=== PATIENT | female | born 1970 | race Caucasian/White ===

== ENCOUNTER 2017-10-16 08:19 | Emergency (ER) | payer BC ==
--- NOTE | 2017-10-16 09:15 | RAD ---
CHEST PA AND LATERAL: HISTORY: A 47-year-old female with productive cough and pain on inspiration for several days. COMPARISON: 03/18/17. FINDINGS: Heart size is within normal limits. The lungs are clear. No pneumonia, edema, or pleural effusion. IMPRESSION: No acute intrathoracic disease. POS: [facility]
== END 2017-10-16 09:32 | disposition home or self-care (01) ==
LOC: SCSER 08:19
DX: J20.9 Acute bronchitis, unspecified (principal); B34.9 Viral infection, unspecified; J06.9 Acute upper respiratory infection, unspecified; E03.9 Hypothyroidism, unspecified; F41.9 Anxiety disorder, unspecified
CPT/HCPCS: 71020

== ENCOUNTER 2018-02-16 13:05 | Emergency (ER) | payer BC ==
[2018-02-16] MEDS ORDERED: Ondansetron ODT 4 MG TAB ONE (13:42)
[2018-02-16] MEDS ORDERED: Famotidine 20 MG TAB ONE ×2 (13:42→13:45)
== END 2018-02-16 13:38 | disposition home or self-care (01) ==
LOC: SCSER 13:05
DX: L27.1 Localized skin eruption due to drugs and medicaments taken internally (principal); T38.0X5A Adverse effect of glucocorticoids and synthetic analogues, initial encounter; E03.9 Hypothyroidism, unspecified; E11.9 Type 2 diabetes mellitus without complications; F41.9 Anxiety disorder, unspecified
CPT/HCPCS: 99283; Q0162

== ENCOUNTER 2018-03-13 14:46 | Outpatient (CLI) | payer BC | END 2018-03-13 14:47 | disposition home or self-care (01) | LOC: BICULT 14:46 | PROVIDERS: ATTEND Otolaryngology Otolaryngic Allergy | DX: E04.1 Nontoxic single thyroid nodule (principal) | CPT/HCPCS: 76536 ==

== ENCOUNTER → 2018-04-08 | Day surgery (SDC) | payer BC ==
[2018-04-05 10:21] VITALS: BMI 32.1
[~2018-04-08] MED LIST: Iopamidol-M 200 41% 20 ML VIAL ONE
[2018-04-08 07:26] VITALS: TEMP 96.9
--- NOTE | 2018-04-08 12:02 | CT ---
LUMBAR MYELOGRAM WITH POST MYELOGRAPHIC CT: Date: 04-08-18 History: Patient with lumbar radiculopathy with previous surgery four years ago. Sciatic for 9 months . PROCEDURE: Initially, right L2-3 followed by right L1-2 interlaminar spaces were localized using fluoroscopy. Th e patient experienced some pain in the right L2-3 area, therefore, the area was switched to the L1-2 region. using a paraspinal approach, L2-3 followed by L1-2 interlaminar spaces were localized. The ov erlying skin was prepped and draped in the usual manner. A 1% Lidocaine solution was used to anesthet ize the overlying soft tissues. A 22 gauge spinal needle was placed into the subarachnoid space. A to gauri of 10 ml of Isovue M200 was injected into the subarachnoid space. RADIOGRAPHIC FINDINGS: T12-L1, L1-2: Unremarkable. L2-3: Unremarkable. L3-4: Unremarkable with no evidence of significant central stenosis or neural foraminal narrowing is seen. L4-5: No significant evidence of disc herniation, central stenosis, or neural foraminal narrowing is seen. L5-S1: Posterior fusion hardware is seen at L5-S1 level. 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 There is grade I anterolisthesis of L5 on S1 with ap proximately 8.5 mm of anterolisthesis. No significant degree of central stenosis seen. The neural for amen demonstrate mild bilateral narrowing. IMPRESSION: 1. L5-S1 fusion hardware is in place. There does appear to be a fracture involving the right S1 screw . 2. There is suggestion of some lucency surrounding the left S1 screw. POS: [facility]
== END ==
LOC: RAD 06:59
PROVIDERS: ATTEND Physician Assistant
PROC: B00B1ZZ Plain Radiography of Spinal Cord using Low Osmolar Contrast (ICD-10-PCS; principal; 2018-04-08)
DX: M54.16 Radiculopathy, lumbar region (principal); Z98.890 Other specified postprocedural states; Z88.0 Allergy status to penicillin; Z88.8 Allergy status to other drugs, medicaments and biological substances
CPT/HCPCS: 62304; 72132

== ENCOUNTER 2018-05-13 14:49 | Outpatient (CLI) | payer BC ==
[2018-05-13 17:42] LABS: Mean Corpuscular HGB CONC 33.7 g/dL (32.0-36.0); Mean Corpuscular Hemoglobin 30.4 pg (27.0-31.0); Mean Corpuscular Volume 90.2 fl (81.0-99.0); Mean Platelet Volume 6.8 fL (7.4-10.4); Platelet Count 334 thou/uL (130-400); RBC Distribution Width 11.4 % (11.5-14.5); Red Blood Cell (RBC) Count 4.28 mill/uL (4.20-5.40); White Blood Cell (WBC) Count 9.8 thou/uL (4.8-10.8)
[2018-05-13 18:01] LABS: Anion Gap 14 mmol/L (10-20); BUN (Urea Nitrogen) 12 mg/dL (7.0-18.7); Calc. Creatinine Clearance 0 mL/min (70-130); Calcium 9.4 mg/dL (7.8-10.44); Carbon Dioxide 25 mmol/L (22-29); Chloride 101 mmol/L (98-107); Estimated GFR-MDRD 86; Glucose 78 mg/dL (70-105); Potassium 3.7 mmol/L (3.5-5.1); Sodium 136 mmol/L (136-145)
== END 2018-05-13 14:50 | disposition home or self-care (01) ==
LOC: LABBT 14:49
PROVIDERS: ATTEND Neurological Surgery
DX: Z01.818 Encounter for other preprocedural examination (principal); M54.16 Radiculopathy, lumbar region
CPT/HCPCS: 80048; 85027; 93005; 93010

== ENCOUNTER 2018-05-20 05:58 | Day surgery (SDC) | payer BC ==
[2018-05-13 15:08] VITALS: BMI 32.5
[2018-05-20] MEDS ORDERED: Levofloxacin 500 mg/D5W 100 ml Premix Bag ONE (06:18)
[2018-05-20] MEDS ORDERED: Clindamycin/D5W 900 mg/50 ml Premix Bag ONE (06:18)
[2018-05-20] MEDS ORDERED: Sodium Chloride 0.9% 10 ML ONE (06:33)
[2018-05-20] MEDS ORDERED: Midazolam HCl 2 mg/2 ml Vial ONE (06:55)
[2018-05-20] MEDS ORDERED: Fentanyl 100 MCG/2 ML VIAL ONE ×2 (06:55→08:45)
[2018-05-20] MEDS ORDERED: HYDROmorphone 0.5 MG/0.5 ML SYRINGE ONE (08:57)
--- NOTE | 2018-05-20 09:41 | OP ---
DATE OF PROCEDURE: 05/20/2018 SURGEON: Ron Jewell M.D. HOME DELIVERY DRIVER: Leilani Lazaro PROCEDURE: Removal of hardware, L5-S1, exploration spinal fusion L5-S1, revision spinal fusion L5-S1 . Replacement left S1 pedicle screw and posterior nonsegmental instrumentation L5-S1, cancellous bon e chips, local morselized autograft, BMP. PROCEDURE IN DETAIL: The patient was brought to the operating room and intubated. She was rolled in the prone position on gel-filled chest rolls. The previous incision was reopened and the prior hard sanchez was exposed. On the right we found the broken S1 screw as expected, removed the S1 screw head, the seema and the right L5 screw. On the left, we removed the left S1 screw, which was loose as antici pated. This was replaced with an 8.5 mm diameter, 40 mm screw, which was quite solid. This was conn ected to the L5 screws secured by seema, connected by nuts which were final tightened. The fusion itse lf was explored and did not appear to be solid. After extensive irrigation and hemostasis, a combina tion of cancellous bone chips, BMP and local morselized autograft was laid over the laminar and poste rolateral surfaces for the purpose of arthrodesis. Vancomycin powder was applied and the wound was c losed in anatomic layers.
[2018-05-20] MEDS ORDERED: HYDROcodone/Acetaminophen 5/325 mg Tablet ONE (09:45)
[2018-05-20] MEDS ORDERED: ePHEDrine/0.9% NaCl/PF SYRINGE 50 mg/10 ml ONE (12:28)
[2018-05-20] MEDS ORDERED: Dexamethasone 20 MG/5 ML VIAL ONE (12:28)
[2018-05-20] MEDS ORDERED: PROPOFOL 200 MG/20 ML VIAL ONE (12:28)
[2018-05-20] MEDS ORDERED: Ondansetron HCl/PF 4 MG/2 ML Vial ONE (12:28)
[2018-05-20] MEDS ORDERED: Glycopyrrolate 0.2 MG/ML 5 ML SYRINGE ONE (12:28)
== END 2018-05-20 12:15 | disposition home or self-care (01) ==
LOC: SDC 05:58
PROVIDERS: ATTEND Neurological Surgery
PROC: 3E0U0GB Introduction of Recombinant Bone Morphogenetic Protein into Joints, Open Approach (ICD-10-PCS; principal; 2018-05-20)
PROC: 0SG3071 Fusion of Lumbosacral Joint with Autologous Tissue Substitute, Posterior Approach, Posterior Column, Open Approach (ICD-10-PCS; principal; 2018-05-20)
PROC: 0QW004Z Revision of Internal Fixation Device in Lumbar Vertebra, Open Approach (ICD-10-PCS; principal; 2018-05-20)
DX: T84.216A Breakdown (mechanical) of internal fixation device of vertebrae, initial encounter (principal); T84.226A Displacement of internal fixation device of vertebrae, initial encounter; M54.16 Radiculopathy, lumbar region; Z88.0 Allergy status to penicillin; Z88.5 Allergy status to narcotic agent; Z88.8 Allergy status to other drugs, medicaments and biological substances; Z88.7 Allergy status to serum and vaccine; Z79.899 Other long term (current) drug therapy
CPT/HCPCS: 76001; 96374; 96375; A4216; C1713; J1100; J1170; J1956; J2250; J2405; J2704; J3010; J3370; J3490

== ENCOUNTER 2018-05-23 02:40 | Emergency (ER) | payer BC ==
[2018-05-23 03:41] LABS: #Basophils 0.1 thou/uL (0.0-0.2); #Eosinphils 0.2 thou/uL (0.0-0.7); #Lymphocytes 2.6 thou/uL (1.20-3.40); #Neutrophils 6.6 thou/uL (1.40-6.50); %Basophils 1.3 % (0.0-1.0); %Eosinophils 1.7 % (0.0-10.0); %Lymphocytes 24.3 % (21.0-51.0); %Monocytes 9.5 % (0.0-10.0); %Neutrophils 63.3 % (42.0-75.0); Mean Corpuscular HGB CONC 33.6 g/dL (32.0-36.0); Mean Corpuscular Hemoglobin 29.3 pg (27.0-31.0); Mean Corpuscular Volume 87.1 fL (78.0-98.0); Mean Platelet Volume 7.2 fL (7.4-10.4); Platelet Count 323 thou/uL (130-400); RBC Distribution Width 11.9 % (11.5-14.5); Red Blood Cell (RBC) Count 4.43 mill/uL (4.20-5.40); White Blood Cell (WBC) Count 10.5 thou/uL (4.8-10.8)
[2018-05-23 03:54] LABS: ALT (SGPT) 15 U/L (8-55); AST (SGOT) 15 U/L (5-34); Albumin 3.7 g/dL (3.5-5.0); Alkaline Phosphatase 63 U/L (40-150); Anion Gap 14 mmol/L (10-20); BUN (Urea Nitrogen) 8 mg/dL (7.0-18.7); Bilirubin, Total 0.3 mg/dL (0.2-1.2); Calc. Creatinine Clearance 0 mL/min (70-130); Calcium 8.9 mg/dL (7.8-10.44); Carbon Dioxide 25 mmol/L (22-29); Chloride 101 mmol/L (98-107); Estimated GFR-MDRD 86; Glucose 94 mg/dL (70-105); Potassium 3.5 mmol/L (3.5-5.1); Protein, Total 6.7 g/dL (6.0-8.3); Sodium 136 mmol/L (136-145)
[2018-05-23 04:09] LABS: Bilirubin Negative (Negative); Blood, Urine Trace (Negative); Clarity Clear (Clear); Glucose, Urine (Dipstick) Negative (Negative); Leukocyte Negative (Negative); Nitrite Negative (Negative); Protein, Urine (Dipstick) Negative (Neg-Trace); Specific Gravity, Urine 1.015 (1.005-1.030); Urobilinogen 0.2 mg/dL (0.2-1.0)
[2018-05-23 04:13] LABS: Bacteria/HPF Rare-Few HPF (None Seen); Hyaline Casts/LPF 0-3 HYALINE CAST LPF (0-3 Hyaline); RBC/HPF 0-3 HPF (0-3); Squamous Epithelial 0-3 HPF (0-3); WBC/HPF 0-3 HPF (0-3)
[2018-05-23] MEDS ORDERED: Sodium Chloride 0.9% 100 ML ONE (04:23)
[2018-05-23] MEDS ORDERED: cefTRIAXone\\ROCEPHIN 2 GM VIAL ONE (04:23)
--- NOTE | 2018-05-23 08:03 | RAD ---
SINGLE VIEW OF THE CHEST: COMPARISON: 02/13/14. HISTORY: Spinal fusion done 3 days ago with postoperative fever. FINDINGS: Single view of the chest shows a normal sized cardiomediastinal silhouette. There is no evidence of c onsolidation, mass, or pleural effusion. The bones are unremarkable. IMPRESSION: No evidence of acute cardiopulmonary disease. POS: [facility]
== END 2018-05-23 05:05 | disposition home or self-care (01) ==
LOC: SCSER 02:40
DX: R50.82 Postprocedural fever (principal); E03.9 Hypothyroidism, unspecified; F41.9 Anxiety disorder, unspecified; F32.9 Major depressive disorder, single episode, unspecified; M72.2 Plantar fascial fibromatosis; R73.03 Prediabetes; Z79.899 Other long term (current) drug therapy
CPT/HCPCS: 71045; 80053; 81003; 81015; 83605; 85025; 87040; 87086; 96365; J0696; J7050

== ENCOUNTER 2018-06-04 09:47 | Outpatient (CLI) | payer BC ==
--- NOTE | 2018-06-04 12:03 | RAD ---
CT LUMBAR SPINE Indication: History of back surgery, soreness. Comparison: Lumbar spinal myelogram, 04-08-18. FINDINGS: There has been interval removal of the right L5 pedicular screw and portions of the fractured right S 1 screw with interconnecting seema. The left sided L5-S1 posterior interlobar spinal construct remains in place. Portions of the fracture screw at the right S1 level remains within the right sacral ala. T here are posterior midline surgical skin farhat overlying the operative site. Grade I anterolisthesi s of L5 on S1 appears stable. No acute fracture is evident. IMPRESSION: 1. Interval partial removal of the hardware from the L1-S1 interbody fusion construct. 2. Stable grade I anterolisthesis L5 on S1. POS: [facility]
== END 2018-06-04 09:48 | disposition home or self-care (01) ==
LOC: TBSIIMAG 09:47
PROVIDERS: ATTEND Neurological Surgery
DX: M54.16 Radiculopathy, lumbar region (principal); M43.17 Spondylolisthesis, lumbosacral region; Z98.1 Arthrodesis status
CPT/HCPCS: 72100

== ENCOUNTER 2018-07-09 15:13 | Outpatient (CLI) | payer BC ==
--- NOTE | 2018-07-09 16:34 | RAD ---
RADIOGRAPH LUMBAR SPINE 2 VIEWS: 07/09/2018 HISTORY: A 47-year-old female with M51.36, disk degeneration, lumbar region. Followup from recent lumbar surg jose. COMPARISON: 06/04/2018 FINDINGS: There is a transitional level at the thoracolumbar junction with bilaterally hypoplastic ribs. Infer ior to that, there are five lumbar type vertebrae. There is partial sacralization of the L5 vertebra . There are left-sided pedicle screws with a vertical interlocking seema, at L5 and S1. There is a ab andoned distal fragment of a screw embedded in the right S1 vertebral body. Grade 1 anterolisthesis of L5 on S1. Moderate to severe disk space narrowing at L5-S1 with endplate marginal osteophytosis. No high grade disk space narrowing at the rest of the levels. Exaggerated lordosis of the lumbar sp ine. Vertebral body heights are maintained. The only interval change since the previous study is th e interval removal of the dorsal skin farhat. IMPRESSION: 1. Unilateral left-sided pedicle screws fixating a grade 1 spondylolisthesis at L5-S1 due to L5 spon dylolysis. 2. High grade degenerative disk disease at L5-S1. 3. No interval change since 06/04/2018. GALLITO [] POS: [facility]
== END 2018-07-09 15:14 | disposition home or self-care (01) ==
LOC: TBSIIMAG 15:13
PROVIDERS: ATTEND Neurological Surgery
DX: M51.36 Other intervertebral disc degeneration, lumbar region (principal); M51.37 Other intervertebral disc degeneration, lumbosacral region; M43.17 Spondylolisthesis, lumbosacral region; M47.896 Other spondylosis, lumbar region; Z98.890 Other specified postprocedural states
CPT/HCPCS: 72100

== ENCOUNTER 2018-10-09 15:44 | Outpatient (CLI) | payer BC ==
--- NOTE | 2018-10-09 17:17 | RAD ---
LUMBAR SPINE TWO VIEWS: 10/09/18 INDICATION: History of radiculopathy. COMPARISON: Prior exam dated 07/09/18. FINDINGS: The left unilateral posterior interbody fusion construct spanning L5-S1 is stable. Grade I anterolist hesis is stable. The fractured screw embedded within the right S1 vertebral level is stable. Mild mul tilevel spondylosis of the lumbar spine is similar appearing. No acute fracture is evident. IMPRESSION: Stable examination of the lumbar spine. POS: [facility]
== END 2018-10-09 15:45 | disposition home or self-care (01) ==
LOC: TBSIIMAG 15:44
PROVIDERS: ATTEND Neurological Surgery
DX: M54.16 Radiculopathy, lumbar region (principal)
CPT/HCPCS: 72100

== ENCOUNTER 2018-11-16 13:30 | Emergency (ER) | payer BC ==
--- NOTE | 2018-11-16 15:38 | RAD ---
PA AND LATERAL VIEWS CHEST: 11/16/18 HISTORY: Cough. FINDINGS: Comparison made with the exam of 10/16/17. The cardiomediastinum is normal. The lungs are well expanded without focal areas of consolidation, pn eumothorax or pleural effusion. No acute osseous abnormalities are seen. IMPRESSION: No radiographic evidence of acute cardiopulmonary process. POS: [facility]
== END 2018-11-16 15:58 | disposition home or self-care (01) ==
LOC: SCSER 13:30
DX: J02.9 Acute pharyngitis, unspecified (principal); J06.9 Acute upper respiratory infection, unspecified; E03.9 Hypothyroidism, unspecified; F32.9 Major depressive disorder, single episode, unspecified; F41.9 Anxiety disorder, unspecified; Z79.899 Other long term (current) drug therapy
CPT/HCPCS: 71046; 87081; 87430; 87804

== ENCOUNTER 2019-11-07 07:14 | Day surgery (SDC) | payer BC ==
[2019-11-06 11:29] VITALS: BMI 32.5
--- NOTE | 2019-11-07 09:01 | RAD ---
LUMBAR MYELOGRAM: COMPARISON: 04/08/2018. EXPOSURE: 0.5 minutes. 76.6 mGy/m2. FINDINGS: Two views lumbar spine choir leader radiograph: Five lumbar-type vertebrae. Vertebral body height is maintained. No fracture. Unilateral left-sided t ranspedicular screw without perihardware lucency at L5 and S1. Fragment of a screw is noted at the right S1 level. Disc space heights are preserved. Spinal listhesis: L4-L5 : 2.3 mm of retrolisthesis. L5-S1: 7.2 mm of anterolisthesis. Successful lumbar puncture. A total of 9 cc of Isovue-M 300 contrast was administered intrathecally. No immediate or postprocedure complications. TECHNIQUE: Consent obtained to perform a lumbar puncture, for lumbar myelogram. The patient's back was evaluated . The L3-L3 level was deemed appropriate. Skin was prepped and draped in sterile fashion. 1% lidocaine, buffered with sodium bicarbonate was used for local anesthesia. Under fluoroscopic guidanc e, a 22-gauge spinal needle was advanced into the CSF space. A total of 9 cc of Isovue-M 300 contrast was administered intrathecally. Patient tolerated the procedure well. No immediate or postpr ocedure complications. IMPRESSION: Successful lumbar puncture for lumbar myelogram. Transcribed Date/Time: 11/07/2019 9:41 AM
[2019-11-07] MEDS ORDERED: Iopamidol-M 200 41% 20 ML VIAL ONE (11:01)
--- NOTE | 2019-11-07 11:17 | CT ---
POST MYELOGRAM LUMBAR SPINE CT: HISTORY: Lumbar radiculopathy. COMPARISON: 04/08/2018. TECHNIQUE: Post myelogram lumbar spine CT is performed in the axial plane. Sagittal reformation images are submi tted for interpretation. FINDINGS: Interval removal of a broken right-sided S1 transpedicular screw. Interval removal of a right-sided L 5 transpedicular screw. Uncomplicated unilateral left-sided transpedicular screw at L5 and S1. Persistent anterolisthesis of L5 on S1 measuring 0.6 cm. Previously, the degree of anterolisthesis w as 0.8 cm. Lumbar spine vertebral body height is maintained and there is no fracture. Visualized solid organs are grossly unremarkable. No retroperitoneal or paraspinal masses, lymphadeno marianna or hematoma. Visualized alimentary canal is unremarkable. Coronal images demonstrate patent sacroiliac joints. Sacral alae are intact. Visualized sacrum and aj ny pelvis do not demonstrate fracture. Conus medullaris terminates at the inferior aspect of L1. T11-T12 and T12-L1: No significant canal stenosis or significant neural foraminal narrowing. L1-L2: No significant canal stenosis or significant neural foraminal narrowing. L2-L3: No significant canal stenosis or significant neural foraminal narrowing. L3-L4: No significant central canal stenosis or significant neural foraminal narrowing. L4-L5: No significant central canal stenosis. Moderate right and moderate left foraminal narrowing. L5-S1: No significant central canal stenosis. Mild right and left foraminal narrowing. IMPRESSION: 1. Persistent grade 1 anterolisthesis of L5 upon S1. 2. Interval removal of a right-sided transpedicular screw at L5 and S1. Right S1 screw fragment does remain. 3. Neural foraminal narrowing at L4-L5 as described above. 4. No significant central canal stenosis throughout the lumbar spine. Transcribed Date/Time: 11/07/2019 11:51 AM
== END 2019-11-07 09:45 | disposition home or self-care (01) ==
LOC: RAD 07:14
PROVIDERS: ATTEND Neurological Surgery
PROC: B02B1ZZ Computerized Tomography (CT Scan) of Spinal Cord using Low Osmolar Contrast (ICD-10-PCS; principal; 2019-11-07)
DX: M54.16 Radiculopathy, lumbar region (principal); M43.16 Spondylolisthesis, lumbar region; E03.9 Hypothyroidism, unspecified; R73.03 Prediabetes; Z88.0 Allergy status to penicillin; Z88.1 Allergy status to other antibiotic agents; Z88.5 Allergy status to narcotic agent; Z88.7 Allergy status to serum and vaccine; Z88.8 Allergy status to other drugs, medicaments and biological substances
CPT/HCPCS: 62304; 72132

== ENCOUNTER 2023-08-16 08:38 | Outpatient (CLI) | payer OTHER, BC ==
[2023-08-16 10:43] LABS: Hematocrit 40.7 % (34.9-44.5); Mean Corpuscular HGB CONC 31.9 g/dL (32.0-36.0); Mean Corpuscular Hemoglobin 28.5 pg (27.0-33.0); Mean Corpuscular Volume 89.3 fl (81.6-98.3); Mean Platelet Volume 9.3 fl (7.4-10.4); Platelet Count 428 10x3/uL (150-450); RBC Distribution Width 13.7 % (11.5-14.5); Red Blood Cell (RBC) Count 4.56 10x6/uL (3.90-5.03); White Blood Cell (WBC) Count 8.2 10x3/uL (3.5-10.5)
[2023-08-16 11:11] LABS: Anion Gap 12 mmol/L (10-20); BUN (Urea Nitrogen) 10 mg/dL (9.8-20.1); Calc. Creatinine Clearance 0 mL/min (70-130); Calcium 9.5 mg/dL (7.8-10.44); Carbon Dioxide 28 mmol/L (22-29); Chloride 101 mmol/L (98-107); Estimated GFR 105; Glucose 84 mg/dL (70-105); Potassium 4.6 mmol/L (3.5-5.1); Sodium 136 mmol/L (136-145)
== END 2023-08-16 08:39 | disposition home or self-care (01) ==
LOC: LABBT 08:38
PROVIDERS: ATTEND Neurological Surgery
DX: Z01.818 Encounter for other preprocedural examination (principal); M43.16 Spondylolisthesis, lumbar region
CPT/HCPCS: 80048; 85027; 93005; 93010